=== PATIENT | male | born 1990 | race Caucasian/White ===

== ENCOUNTER 2020-05-10 22:04 | Emergency (ER) | payer MEDICAID ==
[~2020-05-10] VITALS: Ht 180.3 cm; Wt 80.0 kg
--- NOTE | 2020-05-10 22:29 | NUR ---
PER MOTHER: FATHER HX OF AT 38 DUE TO HEART ATTACK MOTHER REPORTS THAT HE HAD A SEIZURE YESTERDAY. MED HX OF SEIZURES
[2020-05-10 23:15] VITALS: BP 131/77
== END 2020-05-10 23:16 | disposition home or self-care (01) ==
LOC: ER 22:05
DX: R53.1 Weakness (principal); G47.8 Other sleep disorders; R42 Dizziness and giddiness; F17.200 Nicotine dependence, unspecified, uncomplicated; F15.90 Other stimulant use, unspecified, uncomplicated; F19.90 Other psychoactive substance use, unspecified, uncomplicated; Z72.89 Other problems related to lifestyle
CPT/HCPCS: 99281

== ENCOUNTER 2025-07-14 02:10 | Emergency (ER) | payer MEDICAID ==
[~2025-07-14] VITALS: Ht 180.3 cm; Wt 91.9 kg
[2025-07-14] MEDS ORDERED: MIDAZolam 1 MG/ML 5ML VIAL IM ONE (02:50)
--- NOTE | 2025-07-14 02:51 | Physician Documentation ---
History of Present Illness ~ Chief Complaint: Overdose Stated Complaint: FENTYNAL USE Time Seen by MD: 02:45 Primary Medical Doctor: none HPI Patient presents to the emergency room brought in for evaluation. He is supposed to be going to a rehab facility this morning in his at the [facility] however he is writhing around therefore they kicked him out as that has not being quiet. Bag of drugs found in route to the hospital. Was brought to [facility] where they gave him some oral Ativan but that has not seem to be working. And that has aspiration he is brought here that has he continues to writh and not calming down. Medication Reconciliation Allergies: Coded Allergies: No Known Allergies (Unverified , 07/14/25) Past Medical History Past Medical History: No Pertinent History Past Surgical History: no surgical history Alcohol Use: Sober Drug Use: methamphetamine, other Occupation: employed Review of Systems ROS All review of systems negative except as per HPI Physical Exam Vital Signs: Temperature: 98.3, Source: Oral, Heart Rate: 107, Respiratory Rate: 18, BP: 119/73, Pulse Oximetry: 98, Weight: 91.900 Physical Exam General: Patient is awake, alert, cooperative. Does not stopped moving Head: Normocephalic and atraumatic. Eyes: Conjunctival normal. EOMI. PERRL. ENT: Mucous membranes moist. Neck: Supple, trachea is midline. Chest: Clear to auscultation bilaterally without rales, rhonchi, or wheezes. There is no accessory muscle use or retractions. Cardiac: RRR without murmurs, gallops, or rubs. Neuro: Cranial nerves II-XII grossly intact. No focal neuro deficits. Progress Results/Orders Results/Orders Completed Orders - MINH ARTEAGA MD Midazolam 1 Mg/Ml 5ml Inj (Versed 1 Mg/M (07/14/25 02:50) Diphenhydramine Inj (Benadryl Inj.) (07/14/25 02:50) Midazolam 5 Mg/Ml 2ml Inj (Versed 5 Mg/M (07/14/25 02:55) Drug Screen, Urine (07/14/25 03:02) Haloperidol Lact. (Haldol) (07/14/25 03:40) Haloperidol Lact. (Haldol) (07/14/25 04:05) Vital Signs 07/14/25 07/14/25 07/14/25 07/14/25 02:11 03:21 04:10 07:55 Temp 98.3 98.3 Pulse 107 87 73 Resp 18 18 16 B/P (MAP) 119/73 138/88 (105) 97/56 (70) Pulse Ox 98 99 99 O2 Flow Rate 0 07/14/25 07/14/25 07/14/25 08:04 12:04 17:00 Temp 98.7 Pulse 91 100 Resp 16 18 18 B/P (MAP) 95/57 (70) 111/79 (90) Pulse Ox 97 98 O2 Flow Rate 0 0 Laboratory Tests Test 07/14/25 05:35 Urine Opiates Screen Negative Urine Methadone Screen Negative Urine Fentanyl Screen Positive H Urine Barbiturates Screen Negative Urine Phencyclidine Screen Negative Urine Amphetamines Screen Positive Urine Benzodiazepines Screen Positive Urine Cocaine Screen Negative Urine Cannabinoids Screen Positive Drug Screen Comment Medical Decision Making Additional information obtaine: family Findings Date: Jul 14, 2025 Time: 07:04 Additional note by Vikram Triana, DO: I took over the care of this patient from previous physician. I reviewed any previous notes available, obtain my own history, review of systems and physical examination was performed by myself. This is a 34-year-old gentleman who was brought in for abnormal behavior with a possible drug intoxication. Evidently he was kicked out from the [facility] for tweaking too hard. He received chemical palliation for agitation here and was allowed to metabolize to clinical sobriety. At the time of sign-out the patient is sleeping. He is mom's with the bedside. Facility Status: ED Holds, [facility] process The plan was discussed with the patient, who demonstrates clear understanding of the plan and is in agreement with the plan unless otherwise noted in the chart. All questions have been answered, all concerns were addressed unless otherwise documented. I was available throughout their ED stay for frequent reassessment and questions. Differential Diagnoses (considered and possible or likely): [Methamphetamine intoxication, alcohol intoxication, methamphetamine withdrawal, alcohol withdrawal, fentanyl intoxication, polysubstance abuse, homelessness] ??Differential Diagnoses (considered and unlikely, not requiring evaluation currently): [On initial presentation denies somatic complaints, currently sleeping it does not appear to be in any distress] MDM Data Please see HPI for the following: Independent Historians and external Records Review. Historian: [Patient] Independent Historians: ?[Mother, record review] Medication Management: [Reviewed medication list] Social History and determinants: [Reviewed] Please see the body of the note for the following: Any independent interpretations of ECG, imaging studies. All vitals signs/haemodynamics, ordered tests were independently reviewed and interpreted by myself. Nursing triage complaint and vitals reviewed, additional nursing notes were reviewed as available and I agree unless otherwise noted or documented in contradiction in the chart Vital Signs: Independently reviewed Labs: Independently interpreted Imaging: Independently interpreted Old Medical Records: Independently reviewed, see HPI for relevant summary and information Pulse Oximetry: [99%] interpreted as [normal on room air] by me Additionally notably showing: [Hemodynamics reviewed. Initially tachycardic, that improved with rest and chemical palliation. No evidence of hypotension respiratory distress. Laboratory studies notable for drug screen positive for fentanyl, amphetamines, benzodiazepines, and cannabinoids. Benzodiazepines could potentially be iatrogenic from Ativan he received at [facility].] Tests considered but not ordered include: [Hematologic workup and imaging has been considerably he has a no somatic complaints at this time. We will reconsider upon re-evaluation.] Social Determinants of Health Impact: Patient was evaluated in [facility], or [facility] [place] access to healthcare due to below par ratio of patient to medical providers. [] Comorbid Conditions Impacting Present Evaluation and Care/Treatment: [Homelessne ss, polysubstance abuse] Management Discussions with other Healthcare Providers: [None] Treatment and Disposition Medication Management (Given or considered): []. See EMR for details Consideration for Hospitalization/Escalation/Deescalation of Care: Admission for observation has been considered, [however the patient is able to tolerate p.o., their symptoms are controlled, they are able to rely on oral medications, and their chief complaint/diagnosis can be managed on outpatient basis.] ?ED Course:?[The patient metabolize to clinical sobriety] ?Shared decision making:?[Patient is hemodynamically stable for discharge home with follow with their primary care provider. [ ] Specific and cautious return precautions provided and discussed with full understanding. Any incidental findings were also discussed and follow up recommendations given. [] All questions answered. Patient/family were able to verbalize back return precautions. Patient/family agree to plan. Copies of imaging and laboratory studies were provided.] Code status:?FULL Please see the full Electronic Medical Record for full details of nursing documentation, medications list, other records of complete past medical history and conditions, vital signs, laboratory studies, and any radiologic study in terpretations by radiologists. Portions of this note were completed using Pantry dictation software and as a result there may exist minor errors in spelling. I have reviewed elements of past family and social history and agree as included in note. Differential Dx:Considerations: Include: Other (See body of the main note for differential diagnosis) Departure Disposition: 01 HOME / SELF CARE / HOMELESS Impression: Primary Impression: Methamphetamine intoxication Additional Impression: Fentanyl use disorder, moderate Condition: Improved Discharge Instructions: Methamphetamines Use Disorder Referrals: NO PRIMARY CARE PROVIDER (PCP) Education Educated: Patient, Family Educated regarding: diagnosis, treatment, prognosis, need for follow up Signature Scribe Signature: No scribe Attestation: The note accurately reflects work and decisions made by me.Minh Arteaga MD 07/14/25 18:29 Date: Jul 14, 2025 Time: 07:08 This note accurately reflects clinical decisions, work performed by myself, DO MAX Hobbs JESSE G MD Jul 14, 2025 02:51 VIKRAM TRIANA DO Jul 14, 2025 07:08
[2025-07-14] MEDS: MIDAZolam 5mg/ml 2ml vial IV ONE (02:56)
[2025-07-14] MEDS: haloperidol lactate 5mg/ml inj IM ONE ×2 (03:49→04:17)
[2025-07-14 06:10] LABS: URINE AMPHETAMINE SCREEN POSITIVE (Neg); URINE BARBITUATE SCREEN NEGATIVE (Neg); URINE BENZODIAZEPINES SCREEN POSITIVE (Neg); URINE CANNABINOID SCREEN POSITIVE (Neg); URINE COCAINE SCREEN NEGATIVE (Neg); URINE METHADONE SCREEN NEGATIVE (Neg); URINE OPIATE SCREEN NEGATIVE (Neg); URINE PHENCYCLIDINE SCREEN NEGATIVE (Neg)
[2025-07-14 17:00] VITALS: BP 111/79; PULSE 100; RESP 18; TEMP 98.7; O2SAT 98
[2025-07-15] MEDS ORDERED: DIAZ5TAB PO (11:33)
[2025-07-15] MEDS ORDERED: BENZ1TAB78 PO (11:33)
== END 2025-07-14 17:16 | disposition home or self-care (01) ==
LOC: ER 02:10
DX: F15.129 Other stimulant abuse with intoxication, unspecified (principal); F19.90 Other psychoactive substance use, unspecified, uncomplicated; R45.1 Restlessness and agitation; Z79.899 Other long term (current) drug therapy
CPT/HCPCS: 80305; 96372; 96374; 99285; J1200; J1630; J2250

== ENCOUNTER 2025-07-15 10:01 | Emergency (ER) | payer MEDICAID ==
[~2025-07-15] VITALS: Ht 182.9 cm; Wt 88.1 kg
--- NOTE | 2025-07-15 10:16 | Physician Documentation ---
History of Present Illness ~ General Stated Complaint: SEE CHIEF Time Seen by MD: 10:08 Primary Medical Doctor: none History of Present Illness Initial Comments 34-year-old male who presents with neck and facial spasms Per chart review, the patient was seen here in the emergency department yesterday with agitation and restlessness in the setting of polysubstance abuse. It appears he was given Versed and Haldol in the ER. He returns today with several hours of uncontrollable spasms in his neck and fac e. He says that his head keeps getting twisted to the side. He feels like it is hard to talk and control his tongue. He also reports a little bit of spasming in his back muscles. He does have some cold sores on his lips. No significant difficulty swallowing. No other new or different symptoms. After he left the ER yesterday he did use fentanyl and took some ibuprofen. He denies any other drug or medication use. No history of similar episode Medication Reconciliation Allergies: Coded Allergies: No Known Allergies (Unverified , 07/15/25) Scheduled Benztropine Mesylate (Benztropine Mesylate), 1 TAB PO Q8H Scheduled PRN Diazepam (Valium), 1 TAB PO BID PRN for muscle spasms Past Medical History Past Medical History: No Pertinent History Past Surgical History: no surgical history Alcohol Use: Sober Drug Use: methamphetamine, other Occupation: employed Review of Systems Constitutional: Denies: fever Musculoskeletal: Reports: muscle pain, muscle stiffness Physical Exam Physical Exam Physical Exam General: This is an anxious appearing young man, who is head and neck is twisted to the left HEENT: Atraumatic, oropharynx is moist. He does have cold sores in the central upper and lower lips with mild swelling in this region only. Tongue does not appear swollen it does appear to occasionally deviated to the left in his speech is hard to understand. The patient's neck continuously is twisting to the left, although I am able to straight in his head and touch his neck to his chest intermittently. He is swallowing his secretions. Heart: Tachycardic, appears regular Lungs: normal work of breathing, normal oxygen saturation on room air Neuro: Alert and oriented Psychiatric: Anxious and appears in mild distress Progress Results/Orders Results/Orders Completed Orders - BLUE ROYAL MD Benztropine Mesylate Injection (Cogentin (07/15/25 10:20) Diazepam Inj (Valium Inj) (07/15/25 10:20) Vital Signs 07/15/25 07/15/25 07/15/25 07/15/25 10:11 10:20 10:26 11:39 Temp 97.9 98.6 Pulse 123 137 85 Resp 20 16 34 19 B/P (MAP) 122/43 126/90 (102) 143/88 Pulse Ox 100 100 100 O2 Flow Rate 0 Re-Evaluation Re-Evaluation : Re-Evaluation Time: 11:04 Re-Evaluation: Improved Progress The patient states his symptoms have completely resolved after the medications EKG/XRAY/CT/US/VASC/MRI EKG : Additional Comment I personally interpreted the EKG and this shows: Sinus rhythm, rate 90, QTC 441, QRS 101 Medical Decision Making Additional information obtaine: old records Findings Reviewed ER visit from yesterday. He did receive IM Haldol Differential Diagnosis Differential diagnosis includes medication reaction, torticollis, dystonic reaction, muscle spasm Assessment The patient presents with neck and facial muscle spasms. On chart review he did receive IM Haldol yesterday, and this appears consistent with a dystonic reaction. An IV was placed and he was given benztropine and Valium. Following this, he had resolution of his symptoms. EKG unremarkable. No other evidence of a dangerous process or overdose. Given the his symptoms were resolved, he was discharged with a prescription for the above treatments, and outpatient follow up. Return precautions given. Departure Time of Disposition: 11:31 Disposition: 01 HOME / SELF CARE / HOMELESS Impression: Primary Impression: Acute dystonic reaction due to drugs Additional Impression: Neck muscle spasm Condition: Improved Discharge Instructions: Dystonic Reaction Referrals: NO PRIMARY CARE PROVIDER (PCP) Prescriptions Diazepam (Valium) 5 Mg Tablet 1 TAB PO BID PRN for muscle spasms for 2 Days, #4 TAB 0 Refills Prov: BLUE ROYAL MD 07/15/25 Benztropine Mesylate (Benztropine Mesylate) 1 Mg Tablet 1 TAB PO Q8H for neck spasms for 5 Days, #15 TAB Prov: BLUE ROYAL MD 07/15/25 Education Educated: Patient, Family Educated regarding: diagnosis, treatment, need for follow up Signature Scribe Signature: na Attestation: BLUE Auguste MD Jul 15, 2025 10:16
[2025-07-15] MEDS: diazepam inj 5 MG/ML inj. IV ONE (10:26)
[2025-07-15] MEDS: benztropine 1 mg/ml 2ml ampule IV ONE (10:26)
[2025-07-15] MEDS ORDERED: DIAZ5TAB PO (11:33)
[2025-07-15] MEDS ORDERED: BENZ1TAB78 PO (11:33)
[2025-07-15 11:39] VITALS: BP 143/88; PULSE 85; RESP 19; TEMP 98.6; O2SAT 100
== END 2025-07-15 11:44 | disposition home or self-care (01) ==
LOC: ER 10:02
DX: G24.02 Drug induced acute dystonia (principal); F19.90 Other psychoactive substance use, unspecified, uncomplicated; M62.838 Other muscle spasm; F15.90 Other stimulant use, unspecified, uncomplicated; Z79.899 Other long term (current) drug therapy
CPT/HCPCS: 96374; 96375; 99284; J0515; J3360

== ENCOUNTER 2025-07-15 12:15 | Emergency (ER) | payer MEDICAID ==
[~2025-07-15] VITALS: Ht 182.9 cm; Wt 78.0 kg
[~2025-07-15 12:15] MED LIST: BENZ1TAB78 PO; DIAZ5TAB PO
[2025-07-15 13:04] VITALS: TEMP 98
[2025-07-15] MEDS: benztropine 1 mg/ml 2ml ampule IV ONE (13:54)
--- NOTE | 2025-07-15 14:00 | ELECTROCARDIOGRAPH REPORT ---
[facility] Test Date: 2025-07-15 Test Time: 10:54:34 Pat Name: ANAM OCASIO Department: EMERGENCY ROOM Patient ID: [facility]-[id number] Room: Gender: M Public Records Researcher: PM : 1990 Requested By: CHRISSY GRAY Order Number: [id number] Reading MD: Dr. SOTERO Nieves Measurements Intervals [place] Rate: 90 P: 73 ME: 140 QRS: 101 QRSD: 101 T: 54 QT: 360 QTc: 441 Interpretive Statements Sinus rhythm Probable left atrial enlargement Right axis deviation Electronically Signed On 07-15-2025 19:17:[address] SOTERO Nieves Please click the below link to view image of tracing.
[2025-07-15 14:55] LABS: CREATININE 0.80 MG/DL (0.60-1.10); TOTAL CARBON DIOXIDE 21.3 MMOL/L (24-32); eCRCL 143 ML/MIN; eGFR > 90 ML/MIN
[2025-07-15 15:05] VITALS: BP 103/76; PULSE 113; O2SAT 100
[2025-07-15 15:16] LABS: MEAN PLATELET VOLUME 7.7 FL (7.4-10.4); RED CELL DISTRIBUTION WIDTH 12.5 % (11.5-14.5)
--- NOTE | 2025-07-15 15:47 | [facility] CONSULT REPORT ---
[facility] Procedure Note [facility] Procedure Note Consult [facility] Note # Demographics Consult Type: General Neurology Patient Location: Emergency Room First Name: ANAM Last Name: NINFA Date of : 1990 Age: 34 Gender: Male Facility: [facility] Time of Initial Page (): 07/15/2025 14:49 First Contact with Site (): 07/15/2025 14:51 # HPI History: 34 y/o M with recent methamphetamine and fentanyl use presents with inconsistent slurred speech. He is biting his shirt to prevent his teeth from clinching. His mother showed me a video taken at home of asynchronous, writhing movements all extremities. # Exam Time of Exam (): 07/15/2025 15:29 Mental Status: - awake - follows commands Language: intermittent slurred speech Cranial Nerves: - normal Motor: - no drift Sensory: - normal sensation Cerebellar: - normal cerebellar exam # Assessment Impression: - Other consider dystonia vs psychogenic movement disorder # Plan Labs: - B12 - CBC - comprehensive metabolic panel - TSH - urine drug screen - ua - Am[place] Imaging: (urgency: routine): - CT Head without contrast Medication: start klonopin 0.5mg BID Other: - If patient has any neurological deterioration please call me back immediately Additional Recommendations: psychiatry consult # Logistics Attestation of consult completion: The patient is located at: [facility]. Facility staff participated in the visit. I performed this telemedicine visit from my offsite office utilizing interactive 2 way audio and visual telecommunication technology at the request of the onsite emergency room provider. Total time spent in telemedicine encounter: I spent 30 minutes reviewing clinical data and/or imaging, obtaining history, examining the patient, communicating with the onsite care team, and in preparation of this report. # Demographics First Name: ANAM Last Name: NINFA Facility: [facility] Electronically signed at 07/15/2025 15:46 () by Marixa Salinas DO Neuro Consult Order placed for: ESTRELLA Guan DO Jul 15, 2025 15:47
--- NOTE | 2025-07-15 16:08 | Physician Documentation ---
History of Present Illness ~ Chief Complaint: Neck pain Stated Complaint: RECHECK Time Seen by MD: 13:44 OK to notify your PCP?: Yes Primary Medical Doctor: none Source: patient, family Exam Limitations: clinical condition HPI 34-year-old male who arrives due to abnormal movements which he has been making with his face and extremities and this is affecting his ability to communicate. Mother states that she has seen him do this in the past but never to this severity. Mother states that he seems to do this when he is on a fentanyl and methamphetamines. Mother states she last used these medications yesterday. Mother brought him to the ER last night and he was treated with Haldol and this resolved his symptoms and then mother states that he went home with her and slept the remainder of the night in her bed so she could monitor him. This morning when he woke up he was completely fine and then about an hour after waking up he started doing abnormal movements prompting her to bring him to the ER. This will be his 2nd visit at the ER today as he was just discharged about an hour ago. Patient was treated with benztropine and Valium and symptoms resolved. Mother states that upon leaving that your eye they returned after about an hour. Mother states that she is unable to take care of him like this. Mother dropped him off at the [facility] yesterday but he got kicked out of the [facility] due to his abnormal movements and behavior. APPARENTLY THEN MOTHER GOT CALLED BECAUSE HE WAS WALKING DOWN THE FREEWAY INTO TRAFFIC AND "ANOTHER HOMELESS PERSON" GOT HIM OFF THE FREEWAY AND GOT HIM TO CALL ME." Patient has no diagnosis of a psychiatric illness but mother thinks that she has been concerned about an underlying psychiatric illness for some time in addition to his symptoms from his drug abuse. Medication Reconciliation Allergies: Coded Allergies: No Known Allergies (Unverified , 07/15/25) Scheduled Benztropine Mesylate (Benztropine Mesylate), 1 TAB PO Q8H Scheduled PRN Diazepam (Valium), 1 TAB PO BID PRN for muscle spasms Past Medical History Past Medical History: No Pertinent History Past Surgical History: no surgical history Alcohol Use: Sober Drug Use: methamphetamine, other Occupation: employed Review of Systems All Other Systems at this time: Reviewed and Negative Physical Exam Vital Signs: Temperature: 98.0, Source: Oral, Heart Rate: 113, Respiratory Rate: 16, BP: 103/76, Pulse Oximetry: 100, Weight: 78.000 Oxygen Flow Rate: 0 General Appearance GENERAL: Alert, no acute distress. PATIENT IS UNABLE TO GIVE HISTORY, ABNORMAL MOVEMENTS OF HIS FACE, EXTREMITIES, CLENCHING HIS TEETH. HEENT: NCAT, EOMI, PERRL, normal oropharynx, moist oral mucosa. NECK: Supple, trachea midline. CARDIAC: Regular rate and rhythm, no murmurs, rubs, or gallops. Equal distal pulses. No lower extremity edema, cap refill less than 2 seconds. RESPIRATORY: Equal breath sounds, clear to auscultation bilaterally, no respiratory distress. MUSCULOSKELETAL: WALKED TO BACK OF ER TO PSYCH AREA WITHOUT DIFFICULTY OF SIGNS OF DISTRESS. NEUROLOGICAL: Awake, alert, UNABLE TO ANSWER ME WHEN I ASK HIM QUESTIONS. NO EYE CONTACT. SKIN: Warm/dry, no pallor, no rash. PSYCH: Alert, POOR EYE CONTACT. Progress Results/Orders Reviewed/noted all lab results: Yes Results/Orders Orders - CHRISSY GRAY Edom Prov.Neuro Consult (07/15/25 14:47) Urinalysis (07/15/25 15:34) Drug Screen, Urine (07/15/25 15:34) Med Rec (07/15/25 15:34) 1799.11 (07/15/25 15:34) Close Observation Level (07/15/25 15:34) Covid19 Binax Poc Result Entry (07/15/25 15:34) Substance Use Navigator (07/15/25 15:34) Vitamin B12 (07/15/25 16:01) Completed Orders - CHRISSY GRAY Benztropine Mesylate Injection (Cogentin (07/15/25 13:45) Electrocardiogram (07/15/25 10:54) Cbc/Diff (07/15/25 14:16) CMP (07/15/25 14:16) Ethanol (07/15/25 15:34) TSH (07/15/25 15:34) BMP (07/15/25 15:34) Regular Diet (07/15/25 Dinner) Ammonia (07/15/25 16:01) Medications Received in ER Medications (Trade) Dose Ordered Sig/Cliff Route PRN Reason Start Time Stop Time Status Last Admin Dose Admin (Cogentin injection) 1 mg ONCE ONCE IV 07/15/25 13:45 07/15/25 13:46 DC 07/15/25 13:54 1 MG Vital Signs 07/15/25 07/15/25 07/15/25 07/15/25 12:32 13:04 13:45 14:00 Temp 98.0 98.0 Pulse 120 118 135 90 Resp 18 18 18 15 B/P (MAP) 125/71 97/79 (85) 97/63 (74) Pulse Ox 99 98 97 98 O2 Flow Rate 0 0 0 0 07/15/25 07/15/25 07/15/25 15:05 16:35 17:12 Pulse 113 Resp 16 16 16 B/P (MAP) 103/76 (85) Pulse Ox 100 O2 Flow Rate 0 Laboratory Tests Test 07/15/25 14:27 07/15/25 15:56 07/15/25 15:57 07/15/25 16:17 White Blood Count 7.1 Red Blood Count 4.41 L Hemoglobin 15.3 Hematocrit 43.4 Mean Corpuscular Volume 98.5 H Mean Corpuscular Hemoglobin 34.7 H Mean Corpuscular Hemoglobin Concent 35.3 Red Cell Distribution Width 12.5 Platelet Count 336 Mean Platelet Volume 7.7 Neutrophils (%) (Auto) 78.1 H Lymphocytes (%) (Auto) 14.8 L Monocytes (%) (Auto) 6.4 Eosinophils (%) (Auto) 0.2 Basophils (%) (Auto) 0.5 Neutrophils # (Auto) 5.6 Lymphocytes # (Auto) 1.1 Monocytes # (Auto) 0.5 Eosinophils # (Auto) 0.0 Basophils # (Auto) 0.0 CBC Comment Sodium Level 135 134 L Potassium Level 3.8 4.1 Chloride Level 99 99 Carbon Dioxide Level 21.3 L 22.6 L Anion Gap 15 12 Blood Urea Nitrogen 19 H 18 Creatinine 0.80 0.86 Estimated GFR/1.73 m2 > 90 > 90 BUN/Creatinine Ratio 23.8 H 20.9 H Glucose Level 89 87 Calcium Level 8.4 L 8.4 L Total Bilirubin 0.7 Aspartate Amino Transf (AST/SGOT) 47 H Alanine Aminotransferase (ALT/SGPT) 33 Alkaline Phosphatase 59 Total Protein 7.8 Albumin 4.0 4.1 Globulin 3.8 Albumin/Globulin Ratio 1.1 Chemistry Comments SARS-CoV-2 Antigen (Rapid) Negative Thyroid Stimulating Hormone (TSH) 0.17 L Ethyl Alcohol Level < 10 Ammonia < 10 L Medical Decision Making Additional information obtaine: N/A Findings N/A Differential Dx:Considerations: Include: Hunt's Palsey, CVA, Delirium tremens, DKA, Drug overdose, Electrolyte imbalance, Encephalopathy, Hypoxemia, Hypogl ycemia, Mass lesion, Respiratory failure, Subarachnoid Hemorrhage, TIA, Other Additional Information WHEN I WENT TO DISCHARGE THE PATIENT AND REVIEW THE PLAN HE DID NOT WANT TO STAY IN THE ER AND WANTED TO GO BE WITH HIS MOM HE PUT HIS SHOES ON AND THEN HE BEGAN APPROACHING ME IN WHAT APPEARED TO BE AN AGGRESSIVE MANNER HE WAS WALKING FAIRLY QUICKLY DIRECTLY AT ME. HE ALSO HAD HIS ARM UP IN THE AIR IF HE WAS GOING TO HIT ME. HE THEN SWUNG HIS ARM AT ME AND JUST BEFORE HE CAME IN CONTACT WITH MY SHOULDER HE SLOWED THE SPEED OF HIS ARM DOWN AND LIGHTLY TAPPED MY SHOULDER AND SMILED. HE THEN CONTINUED TO WALK OUT OF THE ER. Departure Time of Disposition: 16:15 Disposition: 01 HOME / SELF CARE / HOMELESS Impression: Primary Impression: Psychogenic movement disorder Additional Impressions: Drug abuse Dystonia Condition: Fair Discharge Instructions: General Discharge Instructions Additional Instructions: THE NEUROLOGIST RECOMMENDED THAT WE GET A PSYCHIATRIC EVALUATION DUE TO CONCERN FOR PSYCHIATRIC MOVEMENT DISORDER CAN BE DONE AN OUTPATIENT RECOMMENDED B12 LEVEL AND AMMONIA WHICH I ADDED. B12 LEVEL TAKES A FEW DAYS TO COME BACK AND YOU CAN FOLLOW UP ON THESE RESULTS IN A FEW DAYS. RECOMMENDED URINE DRUG SCREEN WHICH WAS DONE LAST NIGHT SO I DID NOT REPEAT YOU ARE DISCHARGED TO F/U WITH PRIMARY CARE PROVIDER AT THIS POINT, THE MOVEMENT DISORDER IS THOUGHT TO BE PSYCHOGENIC MOVEMENT DISORDER WHICH IS WHY PSYCHIATRY WAS RECOMMENDED THERE APPEARED TO BE A VOLUNTARY COMPONENT TO IT Transfer orders for [facility]: At this time there is no evidence of an emergent medical condition that would preclude (admission/transfer) to a psychiatric unit via [facility] protocol for further psychiatric, as well as medical evaluation and treatment. At this time I have no reason to believe that transfer via [facility] protocol would have serious medical compromise in the patient's health. Referrals: NO PRIMARY CARE PROVIDER (PCP) Education Educated: Patient Educated regarding: diagnosis, treatment, need for follow up Signature Scribe Signature: X Attestation: CHRISSY JOSEPH Jul 15, 2025 16:08
[2025-07-15 16:32] LABS: CREATININE 0.86 MG/DL (0.60-1.10); ETHANOL < 10 MG/DL (<10); TOTAL CARBON DIOXIDE 22.6 MMOL/L (24-32); eCRCL 133 ML/MIN; eGFR > 90 ML/MIN
[2025-07-15 17:12] VITALS: RESP 16
== END 2025-07-15 17:15 | disposition home or self-care (01) ==
LOC: ER 12:16
DX: F19.10 Other psychoactive substance abuse, uncomplicated (principal); G24.9 Dystonia, unspecified; F15.90 Other stimulant use, unspecified, uncomplicated; Z59.00 Homelessness unspecified; Z79.899 Other long term (current) drug therapy; Z20.822 Contact with and (suspected) exposure to COVID-19
CPT/HCPCS: 36415; 80048; 80053; 80320; 82140; 82607; 84443; 85025; 87811; 93005; 96374; 99285; J0515